=== PATIENT | male | born 1980 | race Hispanic/Latino ===

== ENCOUNTER 2017-04-28 15:05 | Observation (INO) | payer OTHER ==
[2017-04-28 15:14] VITALS: BP 127/85; PULSE 60; RESP 20; TEMP 97.8; O2SAT 98
[2017-04-28] MEDS ORDERED: Sodium Chloride 0.9% 1,000 ML IV STA (16:07)
[2017-04-28 16:26] LABS: VENOUS BLOOD GAS BASE EXCESS 6.5 mmol/L (0.0-2.0); VENOUS BLOOD GAS PCO2 53 mmHg (40-60); VENOUS BLOOD GAS PO2 23 mm/Hg (30-55)
--- NOTE | 2017-04-28 16:33 | ED PDOC ---
HPI: General Adult Time Seen by Provider: 04/28/17 15:39 Chief Complaint (Nursing): Abnormal Skin Integrity History Per: Patient Additional Complaint(s): Pt. states for the past 3 days he's had a progressively worsening painful mass in his rectum. Pt. was seen initially in an Ur[facility] and was instructed to come to ED for further evaluation. Denies fever. Past Medical History Reviewed: Historical Data, Nursing Documentation, Vital Signs Vital Signs: Last Vital Signs Temp 97.8 F 04/28/17 15:11 Pulse 60 04/28/17 15:11 Resp 20 04/28/17 15:11 BP 127/85 04/28/17 15:11 Pulse Ox 98 04/28/17 16:33 - Family History Family History: States: No Known Family Hx - Allergies Allergies/Adverse Reactions: Allergies Allergy/AdvReac Type Severity Reaction Status Date / Time No Known Allergies Allergy Verified 04/28/17 15:11 Review of Systems ROS Statement: Except As Marked, All Systems Reviewed And Found Negative Gastrointestinal: Positive for: Rectal Pain Physical Exam - Physical Exam Appears: Positive for: Well, Non-toxic, No Acute Distress Skin: Positive for: Normal Color, Warm. Negative for: Rash Gastrointestinal/Abdominal: Positive for: Normal Exam, Soft. Negative for: Tenderness Neurologic/Psych: Positive for: Alert, Oriented - Laboratory Results Result Diagrams: 04/28/17 16:30 04/28/17 16:30 - ECG O2 Sat by Pulse Oximetry: 98 ED OBSERVATION Discharge: Yes Date of observation admission: 04/28/17 Time of observation admission: 16:33 - Observation admission statement Patient is being placed in observation because:: Rectal mass - Progress Note Progress Note: 04/28/17 16:[address] with IV contrast ordered. Kept NPO. Pt. offered pain meds in ED but refused. 04/28/17 18:30 CT pelvis w/ IV contrast: No evidence of abscess or other acute findings. Ancef 1gm IV given. Pt. informed of results and instructed to return to ED in 2 days for wound check. Also informed of [employer]. Disposition - Clinical Impression Clinical Impression: Cellulitis - Patient ED Disposition Is Patient to be Admitted: No - Disposition Disposition: Routine/Home Disposition Time: 18:32 Condition: STABLE
[2017-04-28 16:42] LABS: BASO % 0.5 % (0.0-2.0); EOS # 0.1 K/uL (0.0-0.7); EOS % 1.9 % (0.0-4.0); HEMOGLOBIN 13.6 g/dL (12.0-18.0); LYMPH % 28.2 % (20.0-40.0); MEAN CORPUSCULAR HEMOGLOBIN 30.4 pg (27.0-31.0); MEAN CORPUSCULAR HGB CONC 33.5 g/dL (33.0-37.0); MEAN PLATELET VOLUME 9.6 fl (7.2-11.7); MONO # 0.7 K/uL (0.0-0.8); MONO % 9.6 % (0.0-10.0); NEUT # 4.3 K/uL (1.8-7.0); NEUT % 59.8 % (50.0-75.0); RBC 4.48 Mil/uL (4.40-5.90); RED CELL DISTRIBUTION WIDTH 13.4 % (11.5-14.5); WHITE BLOOD COUNT 7.2 K/uL (4.8-10.8)
[2017-04-28 16:55] LABS: ALB/GLOB RATIO 1.6 (1.0-2.1); ALBUMIN 4.3 g/dL (3.5-5.0); ALT/SGPT 47 U/L (21-72); AST/SGOT 30 U/L (17-59); BLOOD UREA NITROGEN 15 mg/dl (9-20); CALCIUM 9.3 mg/dL (8.4-10.2); GFR AFRICAN-AMERICAN > 60; GFR NON-AFRICAN AMERICAN > 60
[2017-04-28 16:57] LABS: PROTHROMBIN TIME 11.6 Seconds (9.8-13.1)
[2017-04-28 16:58] LABS: INR 1.1 (0.9-1.2); PARTIAL THROMBOPLASTIN TIME 31.8 Seconds (25.6-37.1)
[2017-04-28] MEDS ORDERED: Iohexol 300 100 ML IJ ONE (17:13)
[2017-04-28] MEDS ORDERED: Sodium Chloride 0.9% 50 ML IV ONE (17:13)
[2017-04-28] MEDS ORDERED: ceFAZolin 1 GM in Sodium Chloride 0.9% 100 ML IVPB STA (18:21)
--- NOTE | 2017-04-28 19:57 | CT ---
PROCEDURE: CT Pelvis with contrast HISTORY: rectal abscess COMPARISON: None. TECHNIQUE: Contiguous axial images of the pelvis with contrast. Coronal and sagittal reformats generated. Contrast dose: 100 cc of Omnipaque 300 Radiation dose: Total exam DLP = 1443 mGy-cm. This CT exam was performed using one or more of the following dose reduction techniques: Automated exposure control, adjustment of the mA and/or kV according to patient size, and/or use of iterative reconstruction technique. FINDINGS: BLADDER: Unremarkable. No mass. REPRODUCTIVE ORGANS: Unremarkable. VISUALIZED BOWEL: Unremarkable. PERITONEUM: Unremarkable, as visualized. No free fluid. No free air. LYMPH NODES: Unremarkable. No enlarged lymph nodes. VASCULATURE: Unremarkable. BONES: No fracture or focal lesion. OTHER FINDINGS: None. IMPRESSION: Unremarkable contrast enhanced CT of the pelvis.
== END 2017-04-28 18:32 | disposition home or self-care (01) ==
LOC: H.ER 15:05 → H.EROBSV 16:11
PROVIDERS: ADMIT Emergency Medicine; ATTEND Emergency Medicine
DX: K61.1 Rectal abscess (principal)

== ENCOUNTER 2017-06-09 14:12 | Emergency (ER) | payer OTHER ==
[2017-06-09 14:20] VITALS: BP 131/83; PULSE 87; RESP 16; TEMP 98; O2SAT 97
[2017-06-09] MEDS ORDERED: Oxycodone/Acetaminophen 5/325 mg Tab PO STA (14:30)
[2017-06-09] MEDS ORDERED: Oxycodone/Acetaminophen 5/325 mg Tab ONE (14:39)
--- NOTE | 2017-06-09 14:49 | ED PDOC ---
Lower Extremity Pain/Injury Time Seen by Provider: 06/09/17 14:18 Chief Complaint (Nursing): Lower Extremity Problem/Injury Chief Complaint (Provider): Lower Extremity Problem/Injury History/Exam Limitations: no limitations Onset/Duration Of Symptoms: Hrs (x2) Current Symptoms Are (Timing): Still Present Additional Complaint(s): Stanley Cohen is a 36 year old male who presents to the emergency department with a complaint of right knee pain (4/10 scale) associated with swelling status post twisting leg on top of soccer ball 2 hours prior to arrival. Patient stated he heard a "cracking" sound with onset and is unable to ambulate well. PMD: none provided Past Medical History Reviewed: Historical Data, Nursing Documentation, Vital Signs Vital Signs: Last Vital Signs Temp 98.0 F 06/09/17 14:18 Pulse 87 06/09/17 14:18 Resp 16 06/09/17 14:18 BP 131/83 06/09/17 14:18 Pulse Ox 97 06/09/17 14:18 - Medical History PMH: No Chronic Diseases - Surgical History Surgical History: No Surg Hx - Family History Family History: States: Unknown Family Hx - Social History Current smoker - smoking cessation education provided: No Ex-Smoker (has not smoked in the last 12 months): Yes Alcohol: None Drugs: Denies - Home Medications Home Medications: Ambulatory Orders Medication Instructions Recorded Cephalexin [cephalexin] 500 mg PO Q6 #28 cap 04/28/17 Ibuprofen [Motrin] 600 mg PO Q6 #20 tab 06/09/17 - Allergies Allergies/Adverse Reactions: Allergies Allergy/AdvReac Type Severity Reaction Status Date / Time No Known Allergies Allergy Verified 04/28/17 15:11 Review of Systems ROS Statement: Except As Marked, All Systems Reviewed And Found Negative Musculoskeletal: Positive for: Leg Pain (right knee), Other (right knee swelling ) Physical Exam - Reviewed Nursing Documentation Reviewed: Yes Vital Signs Reviewed: Yes - Physical Exam Appears: Positive for: Well, Non-toxic, No Acute Distress Head Exam: Positive for: ATRAUMATIC, NORMAL INSPECTION, NORMOCEPHALIC Skin: Positive for: Normal Color Cardiovascular/Chest: Negative for: Chest Non Tender Respiratory: Positive for: Normal Breath Sounds, Accessory Muscle Use. Negative for: Decreased Breath Sounds Extremity: Positive for: Normal ROM (with pain), Tenderness (medial aspect of right knee), Pedal Edema (medial aspect of right knee), Other (mild cultus on flexion). Negative for: Calf Tenderness, Deformity DTR - Knee (R): 2+ DTR - Ankle (R): 2+ Neurologic/Psych: Positive for: Alert, Oriented - ECG O2 Sat by Pulse Oximetry: 97 (RA) Pulse Ox Interpretation: Normal Medical Decision Making Medical Decision Making: Initial Impression: Right knee injury Initial Plan: * Xray knee (right) * Motrin 600mg PO XR: NAD, as read by JUSTINE Pt placed in knee immobilizer and instructed i crutch walking by windows server support technician Given Ortho referral and RICE therapy advised Scribe Attestation: Documented by Trina Wei, acting as a scribe for Melanie Aleman. Provider Scribe Attestation: All medical record entries made by the Scribe were at my direction and personally dictated by me. I have reviewed the chart and agree that the record accurately reflects my personal performance of the history, physical exam, medical decision making, and the department course for this patient. I have also personally directed, reviewed, and agree with the discharge instructions and disposition. Disposition - Clinical Impression Clinical Impression: Knee injury - Patient ED Disposition Is Patient to be Admitted: No - Disposition Referrals: Byron Fritz III, MD [Staff Provider] - Disposition: Routine/Home Disposition Time: 15:43 Condition: STABLE Prescriptions: Ibuprofen [Motrin] 600 mg PO Q6 #20 tab Instructions: Knee Immobilizer (ED) Forms: ITT EXIM (Peruvian)
--- NOTE | 2017-06-09 16:35 | RAD ---
PROCEDURE: Right Knee Radiographs. HISTORY: pain s/p twist injury COMPARISON: None. FINDINGS: BONES: Normal. No fracture. JOINTS: Normal. No osteoarthritis. JOINT EFFUSION: No radiographic evidence of significant joint effusion. OTHER FINDINGS: None. IMPRESSION: No evidence of acute fracture or dislocation.
== END 2017-06-09 16:04 | disposition home or self-care (01) ==
LOC: H.ER 14:12
DX: S89.91XA Unspecified injury of right lower leg, initial encounter (principal); X50.0XXA Overexertion from strenuous movement or load, initial encounter; Y93.66 Activity, soccer; Y92.39 Other specified sports and athletic area as the place of occurrence of the external cause